=== PATIENT | female | born 1980 | race Caucasian/White ===

== ENCOUNTER 2020-08-06 14:47 | Emergency (ER) | payer MEDICAID ==
[~2020-08-06] VITALS: Ht 182.9 cm; Wt 149.0 kg
[2020-08-06] MEDS ORDERED: IBUPROFEN 600MG TABLET PO ONE (15:45)
[2020-08-06 15:58] VITALS: BP 135/89
[2020-08-06] MEDS ORDERED: IBUP-2029 MT (16:43)
== END 2020-08-06 16:53 | disposition home or self-care (01) ==
LOC: ER 14:47
DX: S90.31XA Contusion of right foot, initial encounter (principal); Z98.890 Other specified postprocedural states; X58.XXXA Exposure to other specified factors, initial encounter; Y93.01 Activity, walking, marching and hiking; Y92.89 Other specified places as the place of occurrence of the external cause; Y99.8 Other external cause status
CPT/HCPCS: 73630; 99283

== ENCOUNTER 2020-10-07 10:31 | Emergency (ER) | payer MEDICAID ==
[~2020-10-07] VITALS: Ht 182.9 cm; Wt 172.0 kg
[~2020-10-07 10:31] MED LIST: IBUP-2029 MT
[2020-10-07] MEDS ORDERED: SODIUM CHLORIDE 0.9% 1,000 ML IV ONE (11:15)
[2020-10-07 11:34] LABS: EOSINOPHILS % 1.6 % (0.0-5.0); HEMATOCRIT. 39.8 % (36.0-48.0); HEMOGLOBIN. 13.7 g/dL (12.0-16.0); LYMPHOCYTES % 27.9 % (20.0-50.0); MEAN CORPUSCULAR HEMOGLOBIN 30.3 pg (28.0-32.0); MEAN CORPUSCULAR VOLUME 87.8 fL (81.0-99.0); MEAN PLATELET VOLUME 9.3 fl (7.4-10.4); MONOCYTES % 5.5 % (2.0-8.0); PLATELET 252 x1000/uL (130-400); RED BLOOD CELL COUNT 4.53 mill/uL (4.2-5.4); RED CELL DISTRIBUTION WIDTH 14.4 % (11.6-14.6)
[2020-10-07 11:41] LABS: CHLORIDE 106 mEq/L (98-107)
[2020-10-07 11:42] LABS: HCG SCREEN NEGATIVE
[2020-10-07 11:45] LABS: ETHANOL BLOOD < 10 mg/dL
[2020-10-07] MEDS ORDERED: LORAZEPAM 1MG TABLET PO ONE (11:45)
[2020-10-07] MEDS ORDERED: KETOROLAC 30MG/ML VIAL IV ONE (12:00)
[2020-10-07 12:05] LABS: *AMPHETAMINES SCREEN URINE NEGATIVE (NEGATIVE); *BARBITURATES SCREEN URINE NEGATIVE (NEGATIVE); *COCAINE SCREEN URINE NEGATIVE (NEGATIVE); OPIATES URINE SCREEN NEGATIVE (NEGATIVE)
[2020-10-07 12:06] LABS: CANNABINOID URINE SCREEN NEGATIVE (NEGATIVE); PHENCYCLIDINE URINE SCREEN NEGATIVE (NEGATIVE)
[2020-10-07 12:07] LABS: METHADONE URINE SCREEN NEGATIVE (NEGATIVE)
[2020-10-07 12:09] LABS: *BENZODIAZEPINES SCREEN URINE NEGATIVE (NEGATIVE)
[2020-10-07] MEDS ORDERED: LORA-249 MT (14:00)
[2020-10-07] MEDS ORDERED: IBUP-2029 MT (14:00)
[2020-10-07 14:30] VITALS: BP 141/80
[2020-10-21] MEDS ORDERED: METR45CR TP (18:36)
[2020-10-21] MEDS ORDERED: EPIN0.3P3 IM (18:36)
[2020-10-21] MEDS ORDERED: MELA5TAB19 PO (18:36)
[2020-10-21] MEDS ORDERED: GENT30CR TP (18:36)
[2020-10-21] MEDS ORDERED: DOXY150C4 MT (18:36)
[2020-10-21] MEDS ORDERED: TRET15GE TP (18:36)
[2020-10-21] MEDS ORDERED: SERT-112 MT (18:36)
[2020-10-21] MEDS ORDERED: MUPI15CR11 TP (18:36)
[2020-10-21] MEDS ORDERED: KETO15CR2 TP (18:36)
[2020-10-21] MEDS ORDERED: DIFL60OI TP (18:36)
[2020-10-21] MEDS ORDERED: METH2.5T MT (18:36)
[2020-10-23] MEDS ORDERED: SULF1TAB48 MT (18:01)
[2020-10-23] MEDS ORDERED: AMOX-424 MT (18:01)
== END 2020-10-07 14:55 | disposition home or self-care (01) ==
LOC: ER 10:31
DX: R07.89 Other chest pain (principal); R06.00 Dyspnea, unspecified; R00.2 Palpitations; F41.9 Anxiety disorder, unspecified; Z90.49 Acquired absence of other specified parts of digestive tract; Z91.018 Allergy to other foods; Z98.890 Other specified postprocedural states
CPT/HCPCS: 36415; 71045; 80053; 80305; 80320; 83690; 83880; 84484; 84703; 85025; 93005; 96361; 96374; 99285; J1885; J7030; G0480

== ENCOUNTER 2020-12-13 14:52 | Emergency (ER) | payer MEDICAID ==
[~2020-12-13] VITALS: Ht 172.7 cm; Wt 125.0 kg
[~2020-12-13 14:52] MED LIST changes: +AMOX-424 MT; +DIFL60OI TP; +EPIN0.3P3 IM; +GENT30CR TP; +KETO15CR2 TP; +LORA-249 MT; +MELA5TAB19 PO; +METH2.5T MT; +MUPI15CR11 TP; +SERT-112 MT; +SULF1TAB48 MT; +TRET15GE TP
[2020-12-13 21:15] LABS: CLARITY URINE CLEAR (CLEAR); COLOR URINE YELLOW (YELLOW); KETONES URINE 1+ (NEGATIVE); LEUKOCYTE ESTERASE URINE NEGATIVE (NEGATIVE); NITRITE URINE NEGATIVE (NEGATIVE); OCCULT BLOOD URINE NEGATIVE (NEGATIVE); PH URINE 5.5 (4.5-8.0); PROTEIN URINE NEGATIVE (NEGATIVE); SPECIFIC GRAVITY URINE 1.025 (1.005-1.030)
[2020-12-13 23:18] VITALS: BP 115/67
== END 2020-12-13 23:20 | disposition home or self-care (01) ==
LOC: ER 14:52
DX: R30.0 Dysuria (principal); R32 Unspecified urinary incontinence; Z90.49 Acquired absence of other specified parts of digestive tract
CPT/HCPCS: 81003; 81025; 99283